=== PATIENT | male | born 1955 | race Caucasian/White ===

== ENCOUNTER 2017-01-07 09:25 | Emergency (ER) | payer MEDICARE ==
[~2017-01-07] VITALS: Ht 165.1 cm; Wt 52.0 kg
[2017-01-07 09:26] VITALS: BP 163/87; PULSE 82; RESP 16; TEMP 98.3; O2SAT 97
--- NOTE | 2017-01-07 09:40 | PD ---
HPI Chief Complaint: Injury Time Seen by Provider: 09:36 Travel History International Travel<30 days: No Contact w/Intl Traveler<30days: No Traveled to known affect area: No History of Present Illness HPI Patient 61-year-old male presents emergency department after bumping his knee 2 days ago. He states his been swelling up and tensing up to the point where he takes some time to have addended. Denies any other injuries. States he just bumped it against the wall accidentally. He states his been able to cannulate though it is quite painful. Has not seen another physician yet. States pain is moderate in intensity. Isolated to the anterior right knee. PFSH Past Medical History Autoimmune Disease: Yes (HIV POSITIVE) Cancer: No Cardiovascular Problems: No Cerebrovascular Accident: Yes (cva ) Diminished Hearing: Yes ([place]) Immune Disorder: Yes (HIV) Tetanus Vaccination: < 5 Years Past Surgical History Abdominal Surgery: Yes (hernia repair) Other Surgery: Yes (LT HERNIA REPAIR 2006) Family History Family Myocardial Infarction: Yes Social History Alcohol Use: Yes Tobacco Use: Yes (1 PPD X 20 YEARS) Substance Use: No Allergies-Medications (Allergen,Severity, Reaction): Coded Allergies: *MDRO Multi-Drug Resistant Organism (Unverified Adverse Reaction, Unknown , MRSA, 01/07/17) MRSA (wrist) - 04/20/07 Reported Meds & Prescriptions Reported Meds & Active Scripts Active No Active Prescriptions or Reported Medications Review of Systems Except as stated in HPI: all other systems reviewed are Neg Physical Exam Narrative GENERAL: Well-nourished, well-developed patient. SKIN: Focused skin assessment warm/dry. HEAD: Normocephalic. EYES: No scleral icterus. No injection or drainage. NECK: Supple, trachea midline. No JVD or lymphadenopathy. CARDIOVASCULAR: Regular rate and rhythm without murmurs, gallops, or rubs. RESPIRATORY: Breath sounds equal bilaterally. No accessory muscle use. GASTROINTESTINAL: Abdomen soft, non-tender, nondistended. MUSCULOSKELETAL: No cyanosis, or edema. Some anterior swelling to the right knee over the patella, no joint effusion appreciated. Full range of motion is exhibited both actively and passively, there is some tenderness with both. Ankle normal, hip normal. Tib-fib normal, femur normal. Left lower extremity is atraumatic, pulses motor and sensory intact distally in all 4 extremities. Compartments are soft. BACK: Nontender without obvious deformity. No CVA tenderness. Data Data Last Documented VS Vital Signs Date Time Temp Pulse Resp B/P Pulse Ox O2 Delivery O2 Flow Rate FiO2 01/07/17 10:54 73 19 121/75 96 01/07/17 09:42 Room Air 01/07/17 09:26 98.3 Orders Knee, Complete (4vws) (01/07/17 ) Ibuprofen (Motrin) (01/07/17 11:00) Matt Bandage (01/07/17 10:05) MDM Medical Decision Making Medical Screen Exam Complete: Yes Emergency Medical Condition: Yes Differential Diagnosis Bursitis seems likely, fracture cannot be excluded bilateral knee rules. Strain , sprain, contusion. Narrative Course Patient roomed in emergency department, he is ambulatory, x-ray of his knee is suggestive of bursitis which confirms a clinical picture. Discussed symptomatic management rest ice compression and elevation. Ibuprofen as needed. Follow-up with primary care physician. Diagnosis Primary Impression: Prepatellar bursitis Qualified Code: M70.41 - Prepatellar bursitis of right knee Scripts No Active Prescriptions or Reported Meds Disposition: 01 DISCHARGE HOME Condition: Stable Wilton Ramirez MD Jan 07, 2017 09:40
--- NOTE | 2017-01-07 10:07 | RADRPT ---
EXAM DATE/TIME: 01/07/2017 09:58 [place] COMPARISON: No previous studies available for comparison. INDICATIONS : Hit his right knee on the bed 1 week ago. MEDICAL HISTORY : None. SURGICAL HISTORY : None. ENCOUNTER: Initial ACUITY: 1 week PAIN SCORE: 10/10 LOCATION: Right knee FINDINGS: Four view examination of the right knee demonstrates no evidence of fracture or dislocation. Bony mi neralization is normal. The articular surfaces are intact. The suprapatellar soft tissues have a no rmal configuration. CONCLUSION: Unremarkable examination of the right knee except marked prepatellar soft tissue thickening possible bursitis. Santo Flores MD on January 07, 2017 at 10:05 Board Certified Radiologist. This report was verified electronically.
[2017-01-07 10:54] VITALS: BP 121/75
[2017-01-07] MEDS ORDERED: IBUPROFEN 600 MG TAB PO ONE (11:00)
== END 2017-01-07 10:56 | disposition home or self-care (01) ==
LOC: NEPD 09:25
DX: M70.41 Prepatellar bursitis, right knee (principal); F17.200 Nicotine dependence, unspecified, uncomplicated; Z21 Asymptomatic human immunodeficiency virus [HIV] infection status; Z86.73 Personal history of transient ischemic attack (TIA), and cerebral infarction without residual deficits
CPT/HCPCS: 73564; 99283

== ENCOUNTER 2018-03-09 10:23 | Observation (INO) ==
[2018-03-09] MEDS ORDERED: Morphine Inj 4 MG/ML Vial IV.PUSH ONE (11:00)
[2018-03-09 11:30] LABS: Baso % (Auto) 0.8 % (0.0-2.0); Eos % (Auto) 0.3 % (0.0-4.0); Hematocrit 37.2 % (39.0-51.0); Hemoglobin 12.4 gm/dL (13.0-17.0); Lymph % (Auto) 24.3 % (9.0-44.0); Mean Corpuscular HGB Conc 33.3 % (32.0-36.0); Mean Corpuscular Hemoglobin 31.7 pg (27.0-34.0); Mean Corpuscular Volume 95.1 fL (80.0-100.0); Mean Platelet Volume 8.7 fL (7.0-11.0); Mono # (Auto) 0.3 th/mm3 (0.0-0.9); Mono % (Auto) 7.3 % (0.0-8.0); Neut # (Auto) 2.8 th/mm3 (1.8-7.7); Neut % (Auto) 67.3 % (16.0-70.0); Platelet Count 131 th/mm3 (150-450); Red Blood Count 3.91 mil/mm3 (4.50-5.90); Red Cell Distribution Width 14.2 % (11.6-17.2); White Blood Count 4.1 th/mm3 (4.0-11.0)
[2018-03-09 11:40] LABS: INR 1.1 Ratio; Prothrombin Time 11.4 sec (9.8-11.6)
[2018-03-09 11:49] LABS: Alanine Aminotransferase 13 U/L (12-78); Albumin 2.6 g/dL (3.4-5.0); Alkaline Phosphatase 76 U/L (45-117); Anion Gap 10 meq/L (5-15); Aspartate Aminotransferase 23 U/L (15-37); Blood Urea Nitrogen 21 mg/dL (7-18); Carbon Dioxide 23.5 meq/L (21.0-32.0); Chloride 98 meq/L (98-107); Glomerular Filtration Rate 60 mL/min (>89); Glucose,Random 83 mg/dL (74-106); Sodium 131 meq/L (136-145); Total Protein 8.4 g/dL (6.4-8.2)
[2018-03-09 12:04] LABS: Creatine Kinase 55 U/L (39-308)
--- NOTE | 2018-03-09 12:15 | XR ---
EXAM DATE: 03/09/2018 11:37 AM EDT AGE/SEX: 62 years / Male INDICATIONS: Chest pains radiating into back, nausea, loss of appetite. CLINICAL DATA: This is the patient's initial encounter. Patient reports that signs and symptoms have been present for 3 days and indicates a pain score of 9/10. MEDICAL/SURGICAL HISTORY: Cardiovascular disease. None. COMPARISON: [facility] [place], CHEST SINGLE AP, 06/16/2016. . FINDINGS: The cardiac silhouette is enlarged in transverse diameter. The aortic knob is prominent with tortuosi ty of the descending thoracic aorta. There is severe emphysematous change in the right upper lobe. T here are chronic fibrotic changes bilaterally. CONCLUSION: Chronic fibrosis and findings of COPD. No acute cardiopulmonary disease. Electronically signed by: Forrest Luis MD 03/09/2018 12:14 PM EDT
--- NOTE | 2018-03-09 13:07 | ED ---
HPI General Chief Complaint: Chest Pain Stated Complaint: chest pain/back pain/legs Time Seen by Provider: 03/09/18 10:59 Source: patient Mode of arrival: ambulatory Limitations: no limitations History of Present Illness HPI narrative: The patient is a 62-year-old male with HIV not on any antiretrovirals for several years for unknown reason presenting with complaint of acute onset of chest pain. For the past few days associated with shortness of breath weakness and nausea. Patient is noncompliant with medications. MD complaint: chest pain STEMI Alert: No Onset (ago): day(s) (3) Duration: constant Onset: during rest Pain location: substernal Severity: severe Quality: aching Pain radiation: none Relieving factors: nothing Exacerbating factors: nothing Associated symptoms: dyspnea Treatments prior to arrival chest pain: none Related Data Home Medications Medication Instructions Recorded Confirmed No Known Home Medications 03/09/18 03/09/18 Allergies Allergy/AdvReac Type Severity Reaction Status Date / Time *MDRO Multi-Drug Resistant AdvReac Unknown MRSA Uncoded 03/09/18 11:21 Organism Review of Systems ROS: all other systems reviewed are negative [facility] Medical History Medical History HIV (human immunodeficiency virus infection) (Acute) Surgical History Surgical History H/O hand surgery (Acute) S/P hernia surgery (Acute) Social History Social History Substance History: Past History Second Hand Smoke Exposure: Yes Smoking Status: Current every day smoker Tobacco Type: Cigarettes How Often Do You Have a Drink Containing Alcohol: 2 to 4 times a month Recent Travel in [facility] within the Last 8 Weeks: No Recent Out of Country Travel within the Last 8 Weeks: No Immunization History Tetanus Immunization: Unsure Hx Influenza Vaccine This Season: No Exam Narrative Exam Narrative: GENERAL: Alert and oriented in no distress cachectic SKIN: Focused skin assessment warm/dry. HEAD: Atraumatic. Normocephalic. Bitemporal wasting EYES: Pupils equal and round. No scleral icterus. No injection or drainage. ENT: No nasal bleeding or discharge. Mucous membranes pink and moist. NECK: Trachea midline. No JVD. CARDIOVASCULAR: Regular rate and rhythm. No murmur appreciated. RESPIRATORY: No accessory muscle use. Clear to auscultation. Breath sounds equal bilaterally. GASTROINTESTINAL: Abdomen soft, non-tender, nondistended. Hepatic and splenic margins not palpable. MUSCULOSKELETAL: No obvious deformities. No clubbing. No cyanosis. No edema. NEUROLOGICAL: Awake and alert. No obvious cranial nerve deficits. Motor grossly within normal limits. Normal speech. PSYCHIATRIC: Appropriate mood and affect; insight and judgment normal. Course Hospital Course: Initial cardiac workup has been unremarkable. Patient is noncompliant with antiretroviral medications. Will admit to chest pain unit Reevaluation(s) Reevaluation #1: Patient comfortably sleeping in no distress no complaint of pain. Time: 13:12 Initial Documented Vital Signs Temperature 99.6 F 03/09/18 10:36 Pulse Rate 88 03/09/18 10:36 Respiratory Rate 13 03/09/18 10:36 Blood Pressure 107/66 03/09/18 10:36 Pulse Oximetry 99 03/09/18 10:36 Last Documented Vital Signs Temperature 98.1 F 03/10/18 08:14 Pulse Rate 67 03/10/18 08:45 Respiratory Rate 16 03/10/18 08:14 Blood Pressure 98/66 L 03/10/18 08:14 Pulse Oximetry 98 03/10/18 08:14 Medical Decision Making MDM Narrative Medical decision making narrative: No leukocytosis. Low platelets at 131. Coags unremarkable. Sodium low at 131 which on the patient's baseline. BUN 21 creatinine 1.23 with a low GFR of 60. Was given a fluid bolus. Troponin EKG not suggestive of acute ischemia. Chest x-ray with findings suggestive of chronic fibrosis and COPD but no acute disease process. Medical Screen Exam Complete: Yes Emergency Medical Condition: Yes Medical Records Medical records reviewed: Yes I reviewed the patient's medical records. Lab Data Lab results reviewed: Yes I reviewed the patient's lab results. Result diagrams: 03/09/18 11:10 03/09/18 11:10 Lab Results 03/09/18 03/09/18 03/09/18 Range/Units 11:10 11:10 11:10 WBC 4.1 (4.0-11.0) th/mm3 RBC 3.91 L (4.50-5.90) mil/mm3 Hgb 12.4 L (13.0-17.0) gm/dL Hct 37.2 L (39.0-51.0) % MCV 95.1 (80.0-100.0) fL MCH 31.7 (27.0-34.0) pg MCHC 33.3 (32.0-36.0) % RDW 14.2 (11.6-17.2) % Plt Count 131 L (150-450) th/mm3 MPV 8.7 (7.0-11.0) fL Neut % (Auto) 67.3 (16.0-70.0) % Lymph % (Auto) 24.3 (9.0-44.0) % [place] % (Auto) 7.3 (0.0-8.0) % Eos % (Auto) 0.3 (0.0-4.0) % Baso % (Auto) 0.8 (0.0-2.0) % Neut # (Auto) 2.8 (1.8-7.7) th/mm3 Lymph # (Auto) 1.0 (1.0-4.8) th/mm3 [place] # (Auto) 0.3 (0.0-0.9) th/mm3 Eos # (Auto) 0.0 (0.0-0.4) th/mm3 Baso # (Auto) 0.0 (0.0-0.2) th/mm3 WBC Differential . Differential Comment Auto diff final PT 11.4 (9.8-11.6) sec INR 1.1 Ratio APTT 27.0 (24.3-30.1) sec Sodium 131 L (136-145) meq/L Potassium 4.0 (3.5-5.1) meq/L Chloride 98 (98-107) meq/L Carbon Dioxide 23.5 (21.0-32.0) meq/L Anion Gap 10 (5-15) meq/L BUN 21 H (7-18) mg/dL Creatinine 1.23 (0.60-1.30) mg/dL Estimated GFR 60 L (>89) mL/min Random Glucose 83 (74-106) mg/dL Calcium 8.0 L (8.5-10.1) mg/dL Total Bilirubin 0.5 (0.2-1.0) mg/dL AST 23 (15-37) U/L ALT 13 (12-78) U/L Alkaline Phosphatase 76 (45-117) U/L Total Creatine Kinase 55 (39-308) U/L Troponin I Less than 0.02 L (0.02-0.05) ng/mL Total Protein 8.4 H (6.4-8.2) g/dL Albumin 2.6 L (3.4-5.0) g/dL Serum Alcohol Less than 3 (0-5) mg/dL 03/09/18 03/09/18 Range/Units 15:20 17:40 WBC (4.0-11.0) th/mm3 RBC (4.50-5.90) mil/mm3 Hgb (13.0-17.0) gm/dL Hct (39.0-51.0) % MCV (80.0-100.0) fL MCH (27.0-34.0) pg MCHC (32.0-36.0) % RDW (11.6-17.2) % Plt Count (150-450) th/mm3 MPV (7.0-11.0) fL Neut % (Auto) (16.0-70.0) % Lymph % (Auto) (9.0-44.0) % [place] % (Auto) (0.0-8.0) % Eos % (Auto) (0.0-4.0) % Baso % (Auto) (0.0-2.0) % Neut # (Auto) (1.8-7.7) th/mm3 Lymph # (Auto) (1.0-4.8) th/mm3 [place] # (Auto) (0.0-0.9) th/mm3 Eos # (Auto) (0.0-0.4) th/mm3 Baso # (Auto) (0.0-0.2) th/mm3 WBC Differential Differential Comment PT (9.8-11.6) sec INR Ratio APTT (24.3-30.1) sec Sodium (136-145) meq/L Potassium (3.5-5.1) meq/L Chloride (98-107) meq/L Carbon Dioxide (21.0-32.0) meq/L Anion Gap (5-15) meq/L BUN (7-18) mg/dL Creatinine (0.60-1.30) mg/dL Estimated GFR (>89) mL/min Random Glucose (74-106) mg/dL Calcium (8.5-10.1) mg/dL Total Bilirubin (0.2-1.0) mg/dL AST (15-37) U/L ALT (12-78) U/L Alkaline Phosphatase (45-117) U/L Total Creatine Kinase 39 43 (39-308) U/L Troponin I Less than 0.02 L Less than 0.02 L (0.02-0.05) ng/mL Total Protein (6.4-8.2) g/dL Albumin (3.4-5.0) g/dL Serum Alcohol (0-5) mg/dL Imaging Data Radiologist's impression: Chest X-Ray 03/09/18 11:00 CONCLUSION: Chronic fibrosis and findings of COPD. No acute cardiopulmonary disease. Myocardial Perfusion Scan Nuc Med 03/10/18 00:00 CONCLUSION: 1. No infarct or area of ischemia is noted ECG Data EKG Prior to Arrival: No Attestation: I personally reviewed and interpreted this ECG as follows: Interpretation: Sinus rhythm 79 bpm right bundle branch block nonspecific ST-T wave abnormalities. No signs of acute ischemia. Discharge Plan Discharge Disposition Patient Disposition: 30 Still Patient Discharge Condition Condition: Stable Discharge Order Discharge Orders: Discharge Order (Routine); Ordered 03/10/18 Ordered By: Vanessa Rodríguez Discharge Details Anticipated Discharge Date: 03/10/18 Diagnosis: Atypical chest pain, HIV (human immunodeficiency virus infection) Physicians Team ED Provider: Salvador Dyer Primary Care Provider: Primary Care Yola Hayden Attending Provider: Laura Quesada ED Status: Left Department Discharge Information Discharge Date/Time: 03/09/18 15:56
[2018-03-09] MEDS ORDERED: Acetaminophen 500 MG Tablet PO PRN (15:31)
--- NOTE | 2018-03-09 15:53 | P.HPCA ---
History of Present Illness Primary Care Physician: No Primary Care Physician Chief Complaint: Chest pain History of Present Illness: This is a 62-year-old male that presents to ED with complaint of 3 days of constant chest and back pain. Patient states that he has a pain across the entire chest is described as piercing and discomfort across his back is described as a heaviness. Nothing has worsened. At home nothing has helped. He was given nitroglycerin IV morphine in the ED and states that the discomfort resolved soon afterwards and has not recurred. States the discomfort is currently resolved. Denies prior history of CAD. Could not initially recall having a prior workup however upon reviewing records he had a nonischemic Lexiscan May 2016 and now he can recall that. Patient also has history of HIV but states he has not taken medications for greater than 10 years. Also has history of multiple sclerosis and states he had never been prescribed medication. States he does not have a local PCP. Patient continues to smoke cigarettes and has history of COPD. Denies recent illness. Denies fevers or chills. Patient continues to smoke about 1 pack of cigarettes daily and has done so for little more than 40 years. Rarely has alcohol. Denies illicit drugs. His father had MIs onset in his 50s. - Diagnosis (1) Chest pain (2) COPD (chronic obstructive pulmonary disease) (3) Tobacco abuse (4) Multiple sclerosis (5) HIV (human immunodeficiency virus infection) Review of Systems General: Patient denies fevers, chills, and recent travel. HEENT: Patient denies headache, sore throat, difficulty swallowing. Cardiovascular: Has the chest discomfort as mentioned above. Denies sensation of heart beating rapidly or irregularly. No syncope. Denies diaphoresis. Respiratory: Denies shortness of breath or inspirational chest discomfort. Denies coughing wheezing or hemoptysis. GI: Patient denies nausea, vomiting, diarrhea, abdominal pain, bloody stools. Musculoskeletal: Patient denies joint pain or edema. Denies calf pain or edema. Neurovascular: Patient denies numbness, tingling, weakness in extremities. Denies headache. Endocrine: Denies polyuria and polydipsia. Hematologic: Denies easy bruising. Skin: Denies rash or itching. PMFSH - History History Provided By: Patient - Medical History Medical History: Medical History (Last Reviewed 03/09/18 @ 13:11 by Salvador Dyer DO) HIV (human immunodeficiency virus infection) - Surgical History Surgical History: Surgical History (Last Reviewed 03/09/18 @ 13:11 by Salvador Dyer DO) H/O hand surgery S/P hernia surgery - Tobacco History Second Hand Smoke Exposure: Yes Tobacco Use In Past 30 Days: Yes Smoking Status: Current every day smoker Tobacco Type: Cigarettes - Alcohol History How Often Do You Have a Drink Containing Alcohol: Monthly or less - Substance Use History Substance History: Past History, Unable to Obtain - Travel History Recent Travel in the [facility] Within the Last 8 Weeks: No Recent Travel Out of the Country Within the Last 8 Weeks: No - Immunization History Tetanus Immunization: Unsure Hx Influenza Vaccine This Season: No Medications and Allergies Active Medications: Active Medications Acetaminophen (Tylenol) 500 mg PO Q6H PRN PRN Reason: pain scale 1-5 Hydrocodone Bitart/Acetaminophen ([place] 7.5/325) 1 tab PO Q6H PRN PRN Reason: pain scale 6-10 Albuterol (Duoneb Neb (Prn)) 1 ampul NEB Q4HR NEB PRN PRN Reason: SHORTNESS OF BREATH/WHEEZING Aspirin (Aspirin) 325 mg PO DAILY [place] Sodium Chloride (Ns Inj) 1,000 mls @ 100 mls/hr IV.CONT .Q10H NAKITA Ondansetron HCl (Zofran Inj) 4 mg IV.PUSH Q6H PRN PRN Reason: NAUSEA OR VOMITING Pantoprazole Sodium (Protonix) 40 mg PO DAILY [place] Sodium Chloride (Ns Flush) 2 ml IV.FLUSH UNSCH PRN PRN Reason: FLUSH AFTER USING IV ACCESS Last Admin: 03/09/18 11:09 Dose: 2 ml Sodium Chloride (Ns Flush) 2 ml IV.FLUSH BID NAK[place] Sodium Chloride (Ns Flush) 2 ml IV.FLUSH PRN PRN PRN Reason: FLUSH AFTER USING IV ACCESS Allergies Allergy/AdvReac Type Severity Reaction Status Date / Time *MDRO Multi-Drug Resistant AdvReac Unknown MRSA Uncoded 03/09/18 11:21 Organism Home Medications Medication Instructions Recorded Confirmed Type No Known Home Medications 03/09/18 03/09/18 History Exam Vital signs: Vital Signs 03/09/18 10:36 03/09/18 10:43 03/09/18 11:21 Temperature 99.6 F Pulse Rate 88 82 Respiratory Rate 13 17 Blood Pressure 107/66 113/75 Pulse Oximetry 99 96 96 03/09/18 11:22 03/09/18 14:00 03/09/18 14:59 Temperature Pulse Rate 81 80 72 Respiratory Rate 19 17 Blood Pressure 90/58 L Pulse Oximetry 96 96 96 Intake & Output 03/08/18 03/09/1818 18:59 06:59 18:59 Weight 49.895 kg Narrative: GENERAL: This is a well-nourished, well-developed patient, in no apparent distress. Patient speaks in clear complete sentences. Patient is pleasant. HEENT: Head is atraumatic and normocephalic. Neck is supple without lymphadenopathy and trachea is midline. No JVD or carotid bruits. CARDIOVASCULAR: Regular rate and rhythm without murmurs, gallops, or rubs. RESPIRATORY: Clear to auscultation. Breath sounds equal bilaterally. No wheezes , rales, or rhonchi. Chest wall is nontender. No use of accessory muscles. GASTROINTESTINAL: Abdomen is nontender, nondistended. Abdomen soft. No obvious pulsatile mass or bruit. No CVA tenderness. Strong femoral pulses bilaterally. Normal bowel sounds in all quadrants. MUSCULOSKELETAL: Patient is moving upper and lower extremities freely. No calf tenderness or edema, no Homans sign. Strong pulses in upper and lower extremities. NEUROLOGICAL: Patient is alert and oriented. Cranial nerves 2-12 are grossly intact. No focal deficits and speech is clear. SKIN: No rash and turgor is normal. Results 03/09/18 11:10 03/09/18 11:10 Cardiac Enzymes 03/09/18 Range/Units 11:10 AST 23 (15-37) U/L Troponin I Less than 0.02 L (0.02-0.05) ng/mL Coagulation 03/09/18 Range/Units 11:10 PT 11.4 (9.8-11.6) sec APTT 27.0 (24.3-30.1) sec CBC 03/09/18 Range/Units 11:10 WBC 4.1 (4.0-11.0) th/mm3 RBC 3.91 L (4.50-5.90) mil/mm3 Hgb 12.4 L (13.0-17.0) gm/dL Hct 37.2 L (39.0-51.0) % Plt Count 131 L (150-450) th/mm3 Neut # (Auto) 2.8 (1.8-7.7) th/mm3 Lymph # (Auto) 1.0 (1.0-4.8) th/mm3 [place] # (Auto) 0.3 (0.0-0.9) th/mm3 Eos # (Auto) 0.0 (0.0-0.4) th/mm3 Baso # (Auto) 0.0 (0.0-0.2) th/mm3 Comprehensive Metabolic Panel 03/09/18 Range/Units 11:10 Sodium 131 L (136-145) meq/L Potassium 4.0 (3.5-5.1) meq/L Chloride 98 (98-107) meq/L Carbon Dioxide 23.5 (21.0-32.0) meq/L BUN 21 H (7-18) mg/dL Creatinine 1.23 (0.60-1.30) mg/dL Calcium 8.0 L (8.5-10.1) mg/dL AST 23 (15-37) U/L ALT 13 (12-78) U/L Alkaline Phosphatase 76 (45-117) U/L Total Protein 8.4 H (6.4-8.2) g/dL Albumin 2.6 L (3.4-5.0) g/dL Intake and Output 03/09/18 03/09/18 03/09/18 06:59 14:59 22:59 Other: Weight 49.895 kg Patient Weight 03/10/18 06:59 Weight 49.895 kg EKG interpretations - EKG EKG shows: sinus rhythm (Initial EKG is sinus rhythm, right bundle branch block , no significant ST segment depressions or elevations.) Caprini VTE Risk Assessment Caprini VTE Risk Assessment: No/Low Risk (score <= 1) Caprini Risk Assessment Model: Point Value = 1 Point Value = 2 Point Value = 3 Point Value = 5 Age 41-60 Minor surgery BMI > 25 kg/m2 Swollen legs Varicose veins or History of unexplained or recurrent spontaneous Oral contraceptives or hormone replacement Sepsis (< 1 month) Serious lung disease, including pneumonia (< 1 month) Abnormal pulmonary function Acute myocardial infarction Congestive heart failure (< 1 month) History of inflammatory bowel disease Medical patient at bed rest Age 61-74 Arthroscopic surgery Major open surgery (> 45 min) Laparoscopic surgery (> 45 min) Malignancy Confined to bed (> 72 hours) Immobilizing plaster cast Central venous access Age >= 75 History of VTE Family history of VTE Factor V Leiden Prothrombin [id number] Lupus anticoagulant Anticardiolipin antibodies Elevated serum homocysteine Heparin-induced thrombocytopenia Other congenital or acquired thrombophilia Stroke (< 1 month) Elective arthroplasty Hip, pelvis, or leg fracture Acute spinal cord injury (< 1 month) Prophylaxis Regimen: Total Risk Factor Score Risk Level Prophylaxis Regimen 0-1 Low Early ambulation 2 Moderate Order ONE of the following: *Sequential Compression Device (SCD) *Heparin 5000 units SQ BID 3-4 Higher Order ONE of the following medications: *Heparin 5000 units SQ TID *Enoxaparin/Lovenox 40 mg SQ daily (WT < 150 kg, CrCl > 30 mL/min) *Enoxaparin/Lovenox 30 mg SQ daily (WT < 150 kg, CrCl > 10-29 mL/min) *Enoxaparin/Lovenox 30 mg SQ BID (WT < 150 kg, CrCl > 30 mL/min) AND/OR *Sequential Compression Device (SCD) 5 or more Highest Order ONE of the following medications: *Heparin 5000 units SQ TID (Preferred with Epidurals) *Enoxaparin/Lovenox 40 mg SQ daily (WT < 150 kg, CrCl > 30 mL/min) *Enoxaparin/Lovenox 30 mg SQ daily (WT < 150 kg, CrCl > 10-29 mL/min) *Enoxaparin/Lovenox 30 mg SQ BID (WT < 150 kg, CrCl > 30 mL/min) AND *Sequential Compression Device (SCD) Assessment and Plan - Assessment (1) Chest pain Code(s): R07.9 - Chest pain, unspecified Status: Acute (2) COPD (chronic obstructive pulmonary disease) Code(s): J44.9 - Chronic obstructive pulmonary disease, unspecified Status: Acute (3) Tobacco abuse Code(s): Z72.0 - Tobacco use Status: Acute (4) Multiple sclerosis Code(s): G35 - Multiple sclerosis Status: Acute (5) HIV (human immunodeficiency virus infection) Code(s): B20 - Human immunodeficiency virus [HIV] disease Status: Acute - Plan * Chest pain: Patient will continue to have serial cardiac enzymes and EKGs for ruling out purposes. He will be seen by Dr. Quesada of cardiology in the chest pain center. He will have a Lexiscan in the morning if he does rule out. Patient will be discharged home if the stress test is nonischemic with instructions to follow-up with PCP. Return to ED for interval issues. * COPD: Have DuoNeb's as needed. Patient counseled on the importance of smoking cessation. * Tobacco abuse: Patient counseled on the importance of smoking cessation. * HIV: Patient needs to establish primary care for treatment of HIV. States he has not been on medication for 10 years. * Multiple sclerosis: Patient states he has never taken medication for this. He should follow-up with physician for reevaluation and treatment. Patient is stable at this time. He is agreeable to this plan.
[2018-03-09 16:24] LABS: Creatine Kinase 39 U/L (39-308)
[2018-03-09] MEDS: Sod Chloride 0.9% Inj 1,000 ML IV.CONT SCH (16:49)
--- NOTE | 2018-03-09 17:56 | ECG ---
Date Performed: 03/09/2018 Time Performed: 10:52:33 PTAGE: 62 years EKG: Sinus rhythm RIGHT BUNDLE BRANCH BLOCK SEPTAL MYOCARDIAL INFARCTION Since the previous tracing, no significant ch margarita noted ABNORMAL ECG PREVIOUS TRACING : 06/16/2016 20.09 DOCTOR: Laura Quesada Interpretating Date/Time 03/09/2018 17:53:17
[2018-03-09 18:44] LABS: Creatine Kinase 43 U/L (39-308)
[2018-03-10] MEDS: Sod Chloride 0.9% Inj 1,000 ML IV.CONT SCH ×2 (00:35→11:52)
[2018-03-10 08:15] VITALS: BP 98/66; RESP 16; TEMP 98.1; O2SAT 98
--- NOTE | 2018-03-10 08:25 | P.PNCA ---
Subjective Interval history: No further chest pain. No complaints overnight. Physical Exam Vital signs: Vital Signs 03/09/18 10:36 03/09/18 10:43 03/09/18 11:21 Temperature 99.6 F Pulse Rate 88 82 Respiratory Rate 13 17 Blood Pressure 107/66 113/75 Pulse Oximetry 99 96 96 03/09/18 11:22 03/09/18 14:00 03/09/18 14:59 Temperature Pulse Rate 81 80 72 Respiratory Rate 19 17 Blood Pressure 90/58 L Pulse Oximetry 96 96 96 03/09/18 16:00 03/09/18 19:49 03/09/18 20:00 Temperature 99.0 F 98.3 F Pulse Rate 71 86 82 Respiratory Rate 20 20 Blood Pressure 113/71 120/76 Pulse Oximetry 98 100 03/09/18 23:46 03/10/18 04:00 03/10/18 08:14 Temperature 100.0 F H 100.1 F H 98.1 F Pulse Rate 95 H 86 70 Respiratory Rate 18 20 16 Blood Pressure 101/63 106/74 98/66 L Pulse Oximetry 100 96 98 Intake & Output 03/09/18 03/10/18 03/10/18 18:59 06:59 18:59 Intake Total 1000 / 1000 Balance 1000 / 1000 Weight 49.895 kg Intake: IV 1000 / 1000 NS Inj 1,000 ML @ 100 mls/hr IV 1000 / 1000 .CONT .Q10H [facility] Rx#:[id number] Other: Weight On Admission 49.895 kg - Constitutional no acute distress, thin, chronically ill appearing, cooperative Comments: male who appears older than stated age, easily awakens from sleep. Extremely hard of hearing. - Routine HEENT Exam Head: Present: normocephalic, atraumatic - Routine Neck Exam Present: supple - Routine Respiratory Exam Present: decreased breath sounds. Absent: accessory muscle use, rhonchi, wheezes - Routine Cardiovascular Exam Present: RRR. Absent: murmur, gallop, rubs - Routine Abdominal Exam Present: soft, normoactive bowel sounds. Absent: tenderness Assessment and Plan - Assessment (1) Chest pain Code(s): R07.9 - Chest pain, unspecified Status: Acute Plan: Admitted to chest pain center. Monitored on telemetry overnight. ACS ruled out with 3 sets of EKGs and cardiac enzymes. Previously seen and evaluated by Dr. Laura Quesada last evening. Proceed with planned Lexiscan this a.m. If unremarkable, plans to discharge home with follow-up with PCP. (2) COPD (chronic obstructive pulmonary disease) Code(s): J44.9 - Chronic obstructive pulmonary disease, unspecified Status: Acute Plan: Smoking cessation reinforced. (3) Tobacco abuse Code(s): Z72.0 - Tobacco use Status: Chronic Plan: Strongly encouraged stress importance of tobacco cessation. Instructed to quit smoking. (4) Multiple sclerosis Code(s): G35 - Multiple sclerosis Status: Chronic Plan: Establish with a primary care provider. Information will be provided on low cost or free clinics in the area upon discharge. (5) HIV (human immunodeficiency virus infection) Code(s): B20 - Human immunodeficiency virus [HIV] disease Status: Chronic Plan: Strongly encouraged follow up with local health department. Encouraged antiviral treatment to prevent life threatening complication from HIV. - Plan * Chest pain: Patient will continue to have serial cardiac enzymes and EKGs for ruling out purposes. He will be seen by Dr. Quesada of cardiology in the chest pain center. He will have a Lexiscan in the morning if he does rule out. Patient will be discharged home if the stress test is nonischemic with instructions to follow-up with PCP. Return to ED for interval issues. * COPD: Have DuoNeb's as needed. Patient counseled on the importance of smoking cessation. * Tobacco abuse: Patient counseled on the importance of smoking cessation. * HIV: Patient needs to establish primary care for treatment of HIV. States he has not been on medication for 10 years. * Multiple sclerosis: Patient states he has never taken medication for this. He should follow-up with physician for reevaluation and treatment. Patient is stable at this time. He is agreeable to this plan. (1) Chest pain Qualifiers: Chest pain type: unspecified Qualified Code(s): R07.9 - Chest pain, unspecified (2) COPD (chronic obstructive pulmonary disease) Qualifiers: Emphysema type: unspecified
[2018-03-10] MEDS ORDERED: Aspirin 325 MG Tablet PO SCH (09:00)
[2018-03-10 09:19] VITALS: PULSE 67
[2018-03-10] MEDS ORDERED: Regadenoson Inj 0.4 MG/5 ML Syringe IV.PUSH ONE (10:14)
--- NOTE | 2018-03-10 11:52 | NM ---
EXAM DATE: 03/10/2018 11:43 AM EDT AGE/SEX: 62 years / Male INDICATIONS:Angina. . Chest pain. CLINICAL DATA: This is the patient's initial encounter. Patient reports that signs and symptoms have been present for 3 days and indicates a pain score of 1/10. MEDICAL/SURGICAL HISTORY: Chronic obstructive pulmonary disease. Inguinal hernia repair. COMPARISON: [facility] [place], MYOCARDIAL PERF PHARM SPECT, 06/17/2016. . DOSE: 8.6 mCi Tc 99m Myoview at rest 25.7 mCi [id number] at stress 0.4 mg Lexiscan STRESS SYMPTOMS: Shortness of breath. EJECTION FRACTION: 60 % TECHNIQUE: The patient underwent pharmacologic stress with infusion of prescribed dose. Continuous ECG tracing was monitored during stress. Gated SPECT imaging was performed after stress and conventi onal SPECT imaging was performed at rest. The examination was performed on a SPECT/CT scanner, both attenuation and non-corrected datasets were reviewed. FINDINGS: Distribution: The maximum perfused segment at stress is in the anteroseptal wall. Perfusion Study: The pattern of perfusion at stress is within normal limits. Gated Study: There are intact wall motion and wall thickening without hypokinetic or dyskinetic segm ents. The ejection fraction is calculated at 60%. RISK CATEGORY: Low (<1% Annual Motality Rate) CONCLUSION: 1. No infarct or area of ischemia is noted Electronically signed by: Santo Flores MD 03/10/2018 11:51 AM EDT
--- NOTE | 2018-03-10 14:21 | ECG ---
Date Performed: 03/09/2018 Time Performed: 15:31:21 PTAGE: 62 years EKG: Sinus rhythm RIGHT BUNDLE BRANCH BLOCK ABNORMAL ECG PREVIOUS TRACING : 03/09/2018 10.52 Since previous tracing, no significant change noted DOCTOR: Forrest Hendricks Interpretating Date/Time 03/10/2018 14:19:59
--- NOTE | 2018-03-10 15:21 | TR ---
Date Performed: 03/10/2018 Time Performed: 10:15:34 DOCTOR: Forrest Hendricks DRUG LIST: CLINICAL HISTORY: REASON FOR TEST: REASON FOR ENDING: OBSERVATION: CONCLUSION: COMMENTS: Lexiscan stress test was performed under standard four minute protocol. Radionuclide was injected one minute prior to ending the test. No electrocardiographic abormalities were present t o suggest ischemia. Nuclear imaging and interpretation are pending.
== END 2018-03-10 12:35 | disposition home or self-care (01) ==
LOC: NEPC 10:23 → NEDA 10:23 → NEPFCDU 15:49
PROVIDERS: ADMIT Internal Medicine Interventional Cardiology; ATTEND Internal Medicine Interventional Cardiology

== ENCOUNTER 2018-03-25 15:56 | Observation (INO) ==
[2018-03-25] MEDS ORDERED: Sod Chloride 0.9% Inj 1,000 ML IV.SIG ONE (17:17)
[2018-03-25] MEDS ORDERED: Nystatin Liq 500,000 UNIT/5 ML UDC SWISH-SWAL ONE (17:17)
--- NOTE | 2018-03-25 17:23 | ED ---
HPI General Chief complaint: Fall Stated complaint: Fall Time Seen by Provider: 03/25/18 17:10 History of Present Illness HPI narrative: This is a 62-year-old male with history of HIV not on any antiretroviral therapy, multiple sclerosis, presents via EMS for evaluation. Reportedly the patient was consuming alcohol at a bar when he fell. The patient reports that he was sitting at the bar drinking when he felt lightheaded and then passed out. He reports that for the past several weeks he has had generalized fatigue. He is currently complaining of a frontal headache from where he hit his head on the ground. Symptoms are moderate, no obvious aggravating or relieving factors. The patient is a poor historian secondary to intoxication. Per chart review the patient was seen here on March 09 for evaluation of chest pain. He was admitted to the chest pain center where he had a Uneventful workup. Related Data Home Medications Medication Instructions Recorded Confirmed No Known Home Medications 03/09/18 03/25/18 Allergies Allergy/AdvReac Type Severity Reaction Status Date / Time *MDRO Multi-Drug Resistant AdvReac Unknown MRSA Uncoded 03/09/18 11:21 Organism Review of Systems ROS: all other systems reviewed are negative [facility] Social History Social History Substance History: No History of Abuse Second Hand Smoke Exposure: No Smoking Status: Never smoker Tobacco Type: Cigarettes How Often Do You Have a Drink Containing Alcohol: 2 to 3 times a week Recent Travel in [facility] within the Last 8 Weeks: No Recent Out of Country Travel within the Last 8 Weeks: No Immunization History Tetanus Immunization: Unable to Assess Hx Influenza Vaccine This Season: Unable to Assess Exam Narrative Exam Narrative: GENERAL: thin appearing male who is sleeping but arousable. Smells of alcohol. SKIN: Warm and dry. Early developing forehead hematoma noted. HEAD: Skin as noted above. Normocephalic. EYES: Pupils equal and round. No scleral icterus. No injection or drainage. ENT: No nasal bleeding or discharge. Mucous membranes pink and moist. Thrush noted on the buccal mucosa of the cheeks bilaterally. NECK: Trachea midline. No JVD. CARDIOVASCULAR: Regular rate and rhythm. No murmur appreciated. RESPIRATORY: No accessory muscle use. Clear to auscultation. Breath sounds equal bilaterally. GASTROINTESTINAL: Abdomen soft, non-tender, nondistended. Hepatic and splenic margins not palpable. MUSCULOSKELETAL: No obvious deformities. No clubbing. No cyanosis. No edema. NEUROLOGICAL: Awake and alert. No obvious cranial nerve deficits. Motor grossly within normal limits. Slurred speech. Course Initial Documented Vital Signs Temperature 98.3 F 03/25/18 16:03 Pulse Rate 86 03/25/18 16:03 Respiratory Rate 20 03/25/18 16:03 Blood Pressure 114/76 03/25/18 16:03 Pulse Oximetry 95 03/25/18 16:03 Last Documented Vital Signs Temperature 98.3 F 03/25/18 16:03 Pulse Rate 67 03/25/18 19:21 Respiratory Rate 16 03/25/18 19:21 Blood Pressure 114/76 03/25/18 16:03 Pulse Oximetry 100 03/25/18 19:21 Medical Decision Making JAY Attestation JAY supervised visit: Yes Attestation: I, Dr. Paz, have reviewed the advance practice practitioner's documentation and am in agreement, met with the patient face to face, made the diagnosis, and the medical decision making was done by me. *My assessment and Findings: Patient is a 62-year-old male who presents with complaint of generalized weakness. He is acutely intoxicated on arrival. Exam reveals a cachectic, chronically ill-appearing male with easily visible thrush for which she has been given nystatin. CT unremarkable. EKG shows normal sinus rhythm with a RBBB present on previous EKG. No ST or T wave changes. Labs reveal ethanol intoxication in addition to acute on chronic hyponatremia. He has been given 2 L normal saline bolus. Given his multiple comorbidities and acute on chronic hyponatremia possibly causing his generalized weakness he has been admitted to the hospitalist, Dr. Roth, for further evaluation and management. [facility] Narrative Medical decision making narrative: The patient was placed on ECG monitoring and pulse oximetry. A 12-lead EKG was ordered. Lab work, urinalysis, nystatin ordered for thrush. The patient was given IV fluids. Lab work is been reviewed. Sodium is 126 and alcohol level is 200 otherwise lab work is unremarkable. At the end of my shift the patient was signed out pending CT imaging and EKG. Medical Screen Exam Complete: Yes Emergency Medical Condition: Yes Differential Diagnosis Differential Diagnosis: Alcohol intoxication, electrolyte abnormality, dehydration, hypoglycemia, seizure, syncope, MS exacerbation Lab Data Result diagrams: 03/25/18 18:04 03/25/18 18:04 Lab Results 03/25/18 03/25/18 03/25/18 Range/Units 18:04 18:04 18:04 WBC 4.6 (4.0-11.0) th/mm3 RBC 3.64 L (4.50-5.90) mil/mm3 Hgb 11.5 L (13.0-17.0) gm/dL Hct 33.6 L (39.0-51.0) % MCV 92.4 (80.0-100.0) fL MCH 31.5 (27.0-34.0) pg MCHC 34.1 (32.0-36.0) % RDW 13.9 (11.6-17.2) % Plt Count 135 L (150-450) th/mm3 MPV 8.4 (7.0-11.0) fL Prelim Diff (Auto) Slide review pending Neut % (Auto) 38.0 (16.0-70.0) % Lymph % (Auto) 53.6 H (9.0-44.0) % [place] % (Auto) 6.7 (0.0-8.0) % Eos % (Auto) 0.9 (0.0-4.0) % Baso % (Auto) 0.8 (0.0-2.0) % Neut # (Auto) 1.7 L (1.8-7.7) th/mm3 Lymph # (Auto) 2.5 (1.0-4.8) th/mm3 [place] # (Auto) 0.3 (0.0-0.9) th/mm3 Eos # (Auto) 0.0 (0.0-0.4) th/mm3 Baso # (Auto) 0.0 (0.0-0.2) th/mm3 WBC Differential . Diff Scan Auto diff confirmed Differential Comment . Platelet Estimate Low L (Normal) Platelet Morphology Enlarged H (Normal) RBC Morphology Normal (Normal) Sodium 126 L (136-145) meq/L Potassium 4.4 (3.5-5.1) meq/L Chloride 96 L (98-107) meq/L Carbon Dioxide 21.2 (21.0-32.0) meq/L Anion Gap 9 (5-15) meq/L BUN 17 (7-18) mg/dL Creatinine 0.99 (0.60-1.30) mg/dL Estimated GFR 77 L (>89) mL/min Random Glucose 69 L (74-106) mg/dL Calcium 7.7 L (8.5-10.1) mg/dL Magnesium (1.5-2.5) mg/dL Total Creatine Kinase (39-308) U/L CK-MB (CK-2) (0.5-3.6) ng/mL Troponin I (0.02-0.05) ng/mL TSH 1.540 (0.358-3.740) uIU/mL Serum Alcohol 202 H (0-5) mg/dL 03/25/18 Range/Units 18:04 WBC (4.0-11.0) th/mm3 RBC (4.50-5.90) mil/mm3 Hgb (13.0-17.0) gm/dL Hct (39.0-51.0) % MCV (80.0-100.0) fL MCH (27.0-34.0) pg MCHC (32.0-36.0) % RDW (11.6-17.2) % Plt Count (150-450) th/mm3 MPV (7.0-11.0) fL Prelim Diff (Auto) Neut % (Auto) (16.0-70.0) % Lymph % (Auto) (9.0-44.0) % [place] % (Auto) (0.0-8.0) % Eos % (Auto) (0.0-4.0) % Baso % (Auto) (0.0-2.0) % Neut # (Auto) (1.8-7.7) th/mm3 Lymph # (Auto) (1.0-4.8) th/mm3 [place] # (Auto) (0.0-0.9) th/mm3 Eos # (Auto) (0.0-0.4) th/mm3 Baso # (Auto) (0.0-0.2) th/mm3 WBC Differential Diff Scan Differential Comment Platelet Estimate (Normal) Platelet Morphology (Normal) RBC Morphology (Normal) Sodium (136-145) meq/L Potassium (3.5-5.1) meq/L Chloride (98-107) meq/L Carbon Dioxide (21.0-32.0) meq/L Anion Gap (5-15) meq/L BUN (7-18) mg/dL Creatinine (0.60-1.30) mg/dL Estimated GFR (>89) mL/min Random Glucose (74-106) mg/dL Calcium (8.5-10.1) mg/dL Magnesium 2.0 (1.5-2.5) mg/dL Total Creatine Kinase 182 (39-308) U/L CK-MB (CK-2) 2.2 (0.5-3.6) ng/mL Troponin I Less than 0.02 L (0.02-0.05) ng/mL TSH (0.358-3.740) uIU/mL Serum Alcohol (0-5) mg/dL Imaging Data Radiologist's impression: Head CT 03/25/18 17:17 CONCLUSION: 1. No bleed or other acute intracranial abnormality. 2. Chronic maxillary sinus disease, not significantly changed on the right, improved on the left. . Discharge Plan Discharge Disposition Patient Disposition: 30 Still Patient Discharge Condition Condition: Stable Discharge Details Diagnosis: Acute hyponatremia, Multiple sclerosis, HIV (human immunodeficiency virus infection), Alcohol intoxication Physicians Team ED Provider: Dara Paz ED Midlevel Provider: Luis Eduardo Javier Primary Care Provider: UNKNOWN, Rxs /Orders / Referrals /Forms Prescriptions: No Action No Known Home Medications RF: 0 Referrals: Krishna Mittal M.D. [INTERNAL MEDICINE] - 3 Days Discharge Interventions Interventions: Vital Signs Last Done: 03/25/18 19:21 Status ED Status: With Doctor
[2018-03-25 18:29] LABS: Baso % (Auto) 0.8 % (0.0-2.0); Eos % (Auto) 0.9 % (0.0-4.0); Hematocrit 33.6 % (39.0-51.0); Hemoglobin 11.5 gm/dL (13.0-17.0); Lymph # (Auto) 2.5 th/mm3 (1.0-4.8); Lymph % (Auto) 53.6 % (9.0-44.0); Mean Corpuscular HGB Conc 34.1 % (32.0-36.0); Mean Corpuscular Hemoglobin 31.5 pg (27.0-34.0); Mean Corpuscular Volume 92.4 fL (80.0-100.0); Mean Platelet Volume 8.4 fL (7.0-11.0); Mono # (Auto) 0.3 th/mm3 (0.0-0.9); Mono % (Auto) 6.7 % (0.0-8.0); Neut # (Auto) 1.7 th/mm3 (1.8-7.7); Platelet Count 135 th/mm3 (150-450); Red Blood Count 3.64 mil/mm3 (4.50-5.90); Red Cell Distribution Width 13.9 % (11.6-17.2); White Blood Count 4.6 th/mm3 (4.0-11.0)
[2018-03-25 18:42] LABS: Calcium 7.7 mg/dL (8.5-10.1); Carbon Dioxide 21.2 meq/L (21.0-32.0)
[2018-03-25 18:43] LABS: Potassium 4.4 meq/L (3.5-5.1)
[2018-03-25 18:46] LABS: Creatine Kinase 182 U/L (39-308)
[2018-03-25 18:48] LABS: Thyroid Stimulating Hormone 1.54 uIU/mL (0.358-3.740)
[2018-03-25 18:59] LABS: Creatine Kinase MB 2.2 ng/mL (0.5-3.6)
[2018-03-25] MEDS ORDERED: Sod Chloride 0.9% Inj 1,000 ML IV.SIG SCH (19:00)
[2018-03-25 19:08] LABS: RBC Morphology Normal (Normal)
--- NOTE | 2018-03-25 19:17 | CT ---
EXAM DATE: 03/25/2018 6:47 PM EDT AGE/SEX: 62 years / Male INDICATIONS: Trauma. Fall. CLINICAL DATA: This is the patient's initial encounter. Patient reports that signs and symptoms have been present for 1 day and indicates a pain score of 0/10. MEDICAL/SURGICAL HISTORY: Chronic obstructive pulmonary disease. HIV. Multiple sclerosis. None. RADIATION DOSE: 45.15 CTDI (mGy) COMPARISON: [facility] [place], [place] BRAIN W/O CONTRAST, 01/24/2013. . TECHNIQUE: CT of the head without contrast. Using automated exposure control and adjustment of the mA and/or kV according to patient size, radiation dose was kept as low as reasonably achievable to ob tain optimal diagnostic quality images. DICOM format image data is available electronically for revi ew and comparison. FINDINGS: Cerebrum: The ventricles are normal for age. No evidence of midline shift, mass lesion, hemorrhage or acute infarction. No extraaxial fluid collections are seen. Posterior Fossa: The cerebellum and brainstem are intact. The 4th ventricle is midline. The cerebe llopontine angle is unremarkable. Extracranial: Large mucous retention cyst again seen of the right maxillary air cell. There is mild mucoperiosteal thickening of the left maxillary sinus, substantially improved since 2012. Skull: The calvaria is intact. No evidence of skull fracture. CONCLUSION: 1. No bleed or other acute intracranial abnormality. 2. Chronic maxillary sinus disease, not significantly changed on the right, improved on the left. . Electronically signed by: Obinna Gaona MD 03/25/2018 7:16 PM EDT
[2018-03-25] MEDS ORDERED: Haloperidol Inj 5 MG/ML Ampul IV.PUSH PRN (20:56)
[2018-03-25] MEDS ORDERED: LORazepam 1 MG Tablet PO PRN (20:56)
[2018-03-25] MEDS ORDERED: Bisacodyl 10 MG Supp RECTAL PRN (20:57)
--- NOTE | 2018-03-25 21:06 | P.HP ---
History of Present Illness Service: [facility] Primary Care Physician: UNKNOWN History of Present Illness: 62-year-old male with a past medical history significant for HIV (last CD4 count 249 in 2013), not on antiretroviral medications by choice, presents to the emergency department after suffering a fall from a barstool fall drinking at a bar. The patient currently complains of lightheadedness. He denies any pain anywhere. He was brought to the emergency department by EMS because the employees at the bar felt the patient was "too slow in standing up." The patient denies any head trauma. No loss of consciousness. No chest pain or shortness of breath. No abdominal pain. No nausea/vomiting/diarrhea. No lateralizing signs/symptoms. He does complain of white plaques on his tongue. Review of Systems All other systems reviewed negative except as stated in HPI PMFSH - History History Provided By: Patient - Medical History Medical History: Medical History (Last Reviewed 03/25/18 @ 21:02 by Haleigh Roth MD) HIV (human immunodeficiency virus infection) - Surgical History Surgical History: Surgical History (Last Reviewed 03/25/18 @ 21:02 by Haleigh Roth MD) H/O hand surgery S/P hernia surgery - Family History Family History: Family History (Last Updated 03/25/18 @ 21:02 by Haleigh Roth MD) Other Family history unknown - Tobacco History Second Hand Smoke Exposure: No Smoking Status: Never smoker Tobacco Type: Cigarettes - Alcohol History How Often Do You Have a Drink Containing Alcohol: 2 to 3 times a week - Substance Use History Substance History: No History of Abuse - Travel History Recent Travel in the [place] Within the Last 8 Weeks: No Recent Travel Out of the Country Within the Last 8 Weeks: No - Immunization History Tetanus Immunization: Unable to Assess Hx Influenza Vaccine This Season: Unable to Assess Medications and Allergies Active Medications: Active Medications Bisacodyl (Dulcolax Supp) 10 mg RECTAL DAILY PRN PRN Reason: SEVERE CONSITIPATION Flumazenil (Romazecon Inj) 0.2 mg IV.PUSH Q1M PRN PRN Reason: OVERSEDATION Folic Acid (Folic Acid) 1 mg PO DAILY NAKITA Stop: 03/31/18 08:59 Haloperidol Lactate (Haldol Inj) 1 mg IV.PUSH Q15M PRN PRN Reason: for severe agitation Sodium Chloride (Ns Inj) 1,000 mls @ 0 mls/hr IV.SIG BOLUS NAKITA Sodium Chloride (Ns Flush) 2 ml IV.FLUSH PRN PRN PRN Reason: FLUSH AFTER USING IV ACCESS Allergies Allergy/AdvReac Type Severity Reaction Status Date / Time *MDRO Multi-Drug Resistant AdvReac Unknown MRSA Uncoded 03/09/18 11:21 Organism Home Medications Medication Instructions Recorded Confirmed Type No Known Home Medications 03/09/18 03/25/18 History Exam Vital signs: Vital Signs 03/25/18 16:03 03/25/18 19:21 03/25/18 20:48 Temperature 98.3 F Pulse Rate 86 67 67 Respiratory Rate 20 16 16 Blood Pressure 114/76 90/58 L Pulse Oximetry 95 100 97 Intake & Output 03/25/18 03/25/18 03/26/18 06:59 18:59 06:59 Intake Total 1000 / 1000 Balance 1000 / 1000 Intake: IV 1000 / 1000 NS Inj 1,000 ML @ Wide Open IV. 1000 / 1000 SIG BOLUS ONE Rx#:[id number] Narrative: Gen.: No acute distress Head: Normocephalic. Atraumatic. EENT: Pupils equal round and reactive to light. Nose without drainage. Airway intact. Throat without injection. White plaques present on the tongue consistent with oral thrush. Cardiovascular: Regular rate and rhythm. No murmurs, rubs or gallops. Respiratory: Lungs clear to auscultation bilaterally. No wheezes or rhonchi. Abdomen: Soft, nontender, nondistended. No peritoneal signs. Musculoskeletal: No gross deformities. No edema. Skin: No obvious rashes or erythema. Neuro: Sensory and motor grossly intact. Cranial nerves II through XII grossly intact. Results - Labs CBC & Chem 7: 03/25/18 18:04 03/25/18 18:04 Labs: Laboratory Results - last 24 hr 03/25/18 03/25/18 03/25/18 18:04 18:04 18:04 WBC 4.6 RBC 3.64 L Hgb 11.5 L Hct 33.6 L MCV 92.4 MCH 31.5 MCHC 34.1 RDW 13.9 Plt Count 135 L MPV 8.4 Prelim Diff (Auto) Slide review pending Neut % (Auto) 38.0 Lymph % (Auto) 53.6 H [place] % (Auto) 6.7 Eos % (Auto) 0.9 Baso % (Auto) 0.8 Neut # (Auto) 1.7 L Lymph # (Auto) 2.5 [place] # (Auto) 0.3 Eos # (Auto) 0.0 Baso # (Auto) 0.0 WBC Differential . Diff Scan Auto diff confirmed Differential Comment . Platelet Estimate Low L Platelet Morphology Enlarged H RBC Morphology Normal Sodium 126 L Potassium 4.4 Chloride 96 L Carbon Dioxide 21.2 Anion Gap 9 BUN 17 Creatinine 0.99 Estimated GFR 77 L Random Glucose 69 L Calcium 7.7 L Magnesium Total Creatine Kinase CK-MB (CK-2) Troponin I TSH 1.540 Serum Alcohol 202 H 03/25/18 18:04 WBC RBC Hgb Hct MCV MCH MCHC RDW Plt Count MPV Prelim Diff (Auto) Neut % (Auto) Lymph % (Auto) [place] % (Auto) Eos % (Auto) Baso % (Auto) Neut # (Auto) Lymph # (Auto) [place] # (Auto) Eos # (Auto) Baso # (Auto) WBC Differential Diff Scan Differential Comment Platelet Estimate Platelet Morphology RBC Morphology Sodium Potassium Chloride Carbon Dioxide Anion Gap BUN Creatinine Estimated GFR Random Glucose Calcium Magnesium 2.0 Total Creatine Kinase 182 CK-MB (CK-2) 2.2 Troponin I Less than 0.02 L TSH Serum Alcohol - Imaging Impressions Head CT 03/25/18 17:17 CONCLUSION: 1. No bleed or other acute intracranial abnormality. 2. Chronic maxillary sinus disease, not significantly changed on the right, improved on the left. . Caprini VTE Risk Assessment Caprini VTE Risk Assessment: Moderate/High Risk (score >= 2) Caprini Risk Assessment Model: Point Value = 1 Point Value = 2 Point Value = 3 Point Value = 5 Age 41-60 Minor surgery BMI > 25 kg/m2 Swollen legs Varicose veins or History of unexplained or recurrent spontaneous Oral contraceptives or hormone replacement Sepsis (< 1 month) Serious lung disease, including pneumonia (< 1 month) Abnormal pulmonary function Acute myocardial infarction Congestive heart failure (< 1 month) History of inflammatory bowel disease Medical patient at bed rest Age 61-74 Arthroscopic surgery Major open surgery (> 45 min) Laparoscopic surgery (> 45 min) Malignancy Confined to bed (> 72 hours) Immobilizing plaster cast Central venous access Age >= 75 History of VTE Family history of VTE Factor V Leiden Prothrombin [id number] Lupus anticoagulant Anticardiolipin antibodies Elevated serum homocysteine Heparin-induced thrombocytopenia Other congenital or acquired thrombophilia Stroke (< 1 month) Elective arthroplasty Hip, pelvis, or leg fracture Acute spinal cord injury (< 1 month) Prophylaxis Regimen: Total Risk Factor Score Risk Level Prophylaxis Regimen 0-1 Low Early ambulation 2 Moderate Order ONE of the following: *Sequential Compression Device (SCD) *Heparin 5000 units SQ BID 3-4 Higher Order ONE of the following medications: *Heparin 5000 units SQ TID *Enoxaparin/Lovenox 40 mg SQ daily (WT < 150 kg, CrCl > 30 mL/min) *Enoxaparin/Lovenox 30 mg SQ daily (WT < 150 kg, CrCl > 10-29 mL/min) *Enoxaparin/Lovenox 30 mg SQ BID (WT < 150 kg, CrCl > 30 mL/min) AND/OR *Sequential Compression Device (SCD) 5 or more Highest Order ONE of the following medications: *Heparin 5000 units SQ TID (Preferred with Epidurals) *Enoxaparin/Lovenox 40 mg SQ daily (WT < 150 kg, CrCl > 30 mL/min) *Enoxaparin/Lovenox 30 mg SQ daily (WT < 150 kg, CrCl > 10-29 mL/min) *Enoxaparin/Lovenox 30 mg SQ BID (WT < 150 kg, CrCl > 30 mL/min) AND *Sequential Compression Device (SCD) Assessment and Plan - Plan Assessment/plan: 1. Fall/alcohol intoxication Patient denies any trauma or pain secondary to his fall Alcohol level 202 Reports lightheadedness suspect this is secondary to hyponatremia and/or acute alcohol intoxication [facility] protocol 2. Hyponatremia Sodium 126 Status post normal saline in the ED Fluid restriction BMP in the a.m. 3. Oral thrush Nystatin swishswallow 4. HIV Patient is not on any antiretroviral medications and does not follow with infectious disease FEN Regular diet with 800 mL fluid restriction Electrolytes: As above Heparin
[2018-03-25] MEDS: Senna/Docusate Sodium 8.6/50 MG Tablet PO SCH (22:28)
[2018-03-25] MEDS: Nystatin Liq 500,000 UNIT/5 ML UDC SWISH-SWAL SCH (22:28)
[2018-03-25] MEDS: Heparin - SQ 10,000 UNITS/ML Vial SQ SCH (22:28)
[2018-03-26 04:03] VITALS: O2SAT 94
[2018-03-26 08:17] VITALS: BP 128/85; PULSE 79; RESP 22; TEMP 98.2
[2018-03-26] MEDS ORDERED: Multivitamin/Minerals Therapeutic Tablet PO SCH (09:00)
[2018-03-26] MEDS ORDERED: Folic Acid 1 MG Tablet PO SCH (09:00)
[2018-03-26 09:25] LABS: Anion Gap 10 meq/L (5-15); Blood Urea Nitrogen 12 mg/dL (7-18); Calcium 7.2 mg/dL (8.5-10.1); Chloride 109 meq/L (98-107); Glomerular Filtration Rate Greater Than 89 mL/min (>89); Glucose,Random 62 mg/dL (74-106); Potassium 3.8 meq/L (3.5-5.1)
[2018-03-26 09:26] LABS: Sodium 139 meq/L (136-145)
[2018-03-26] MEDS: Senna/Docusate Sodium 8.6/50 MG Tablet PO SCH (09:37)
[2018-03-26] MEDS: Heparin - SQ 10,000 UNITS/ML Vial SQ SCH (09:38)
[2018-03-26] MEDS: Nystatin Liq 500,000 UNIT/5 ML UDC SWISH-SWAL SCH (09:38)
[2018-03-26 09:48] LABS: Total Protein 6.8 g/dL (6.4-8.2)
--- NOTE | 2018-03-26 09:53 | P.PN ---
Subjective Interval history: Follow-up for alcohol intoxication, fall while at the bar, lightheadedness, hyponatremia. Patient is seen sitting upright in bed eating breakfast. RN at bedside. The patient states he feels fine. He denies any lightheadedness or dizziness. He has been ambulating the unit without difficulty. He admits to being intoxicated last night, correlates with alcohol level over 200 upon arrival. He denies ever losing consciousness, states he does remembers feeling weak. Discussed his HIV diagnosis, patient states he has not been on any antiretrovirals in at least 7-10 years, however he is interested on restarting medications. He states he is very familiar with the [facility] and will plan to follow-up there. He states he stopped the medications because he was taking over 10 pills daily, however he recently heard that he could take maybe 1 pill a day which he is more comfortable with. He also complains of bilateral eyes with purulent drainage, worse in the mornings, with matted eyelashes, requesting eyedrops. He also complains of few sores in his mouth and he believes the nystatin SS has helped him overnight. He otherwise denies any other medical complaints including no cough, chest pain , shortness of breath, or abdominal complaints. He wants to go home. Physical Exam Vital signs: Vital Signs 03/25/18 16:03 03/25/18 19:21 03/25/18 20:48 Temperature 98.3 F Pulse Rate 86 67 67 Respiratory Rate 20 16 16 Blood Pressure 114/76 90/58 L Pulse Oximetry 95 100 97 03/25/18 22:39 03/26/18 00:00 03/26/18 04:00 Temperature 97.8 F 98.3 F Pulse Rate 63 74 Respiratory Rate 16 16 16 Blood Pressure 103/63 114/68 Pulse Oximetry 96 94 L 03/26/18 08:00 Temperature 98.2 F Pulse Rate 79 Respiratory Rate 22 Blood Pressure 128/85 Pulse Oximetry 94 L Intake & Output 03/25/18 03/26/18 03/26/18 18:59 06:59 18:59 Intake Total 2059 Output Total 300 / 300 Balance 1760 / 1760 Intake: IV 1999 NS Inj 1,000 ML @ Wide Open IV. 1999 SIG BOLUS NAKITA Rx#:[id number] Oral 60 / 60 Output: Urine 300 / 300 Other: # Voids 1 Date of Last Bowel Movement 03/25/18 Narrative: GENERAL: Well-nourished, well-developed pleasant middle-age male patient in [facility]. SKIN: Warm and dry. No rash. HEENT: Normocephalic. Atraumatic. Pupils equal and round. Mucous membranes pink and moist. Bilateral eyes with mild injection and scant yellow purulent drainage and dry crust on eyelashes. Few white plaques on the superior hard palate and tongue, consistent with thrush. NECK: Supple. Trachea midline. CARDIOVASCULAR: Regular rate and rhythm. No murmur appreciated. RESPIRATORY: No accessory muscle use. Clear to auscultation. Breath sounds equal bilaterally. GASTROINTESTINAL: Abdomen soft, non-tender, nondistended. Normoactive bowel sounds x4. MUSCULOSKELETAL: No obvious deformities. Extremities without clubbing, cyanosis , or edema. NEUROLOGICAL: Awake and alert. No obvious cranial nerve deficits. Motor grossly within normal limits. Moving all extremities spontaneously. Normal speech. PSYCHIATRIC: Appropriate mood and affect; insight and judgment normal. Results - Labs CBC & Chem 7: 03/26/18 11:43 03/26/18 08:16 Laboratory Results - last 24 hr 03/25/18 03/25/18 03/25/18 18:04 18:04 18:04 WBC 4.6 RBC 3.64 L Hgb 11.5 L Hct 33.6 L MCV 92.4 MCH 31.5 MCHC 34.1 RDW 13.9 Plt Count 135 L MPV 8.4 Prelim Diff (Auto) Slide review pending Neut % (Auto) 38.0 Lymph % (Auto) 53.6 H [place] % (Auto) 6.7 Eos % (Auto) 0.9 Baso % (Auto) 0.8 Neut # (Auto) 1.7 L Lymph # (Auto) 2.5 [place] # (Auto) 0.3 Eos # (Auto) 0.0 Baso # (Auto) 0.0 WBC Differential . Diff Scan Auto diff confirmed Differential Comment . Platelet Estimate Low L Platelet Morphology Enlarged H RBC Morphology Normal Sodium 126 L Potassium 4.4 Chloride 96 L Carbon Dioxide 21.2 Anion Gap 9 BUN 17 Creatinine 0.99 Estimated GFR 77 L POC Glucose Random Glucose 69 L Calcium 7.7 L Magnesium Total Creatine Kinase CK-MB (CK-2) Troponin I TSH 1.540 Serum Alcohol 202 H 03/25/18 03/25/18 03/26/18 18:04 22:33 08:16 WBC RBC Hgb Hct MCV MCH MCHC RDW Plt Count MPV Prelim Diff (Auto) Neut % (Auto) Lymph % (Auto) [place] % (Auto) Eos % (Auto) Baso % (Auto) Neut # (Auto) Lymph # (Auto) [place] # (Auto) Eos # (Auto) Baso # (Auto) WBC Differential Diff Scan Differential Comment Platelet Estimate Platelet Morphology RBC Morphology Sodium 139 D Potassium 3.8 Chloride 109 H D Carbon Dioxide 20.0 L Anion Gap 10 BUN 12 Creatinine 0.75 Estimated GFR Greater than 89 POC Glucose 70 Random Glucose 62 L Calcium 7.2 L* Magnesium 2.0 Total Creatine Kinase 182 CK-MB (CK-2) 2.2 Troponin I Less than 0.02 L TSH Serum Alcohol - Imaging Impressions Head CT 03/25/18 17:17 CONCLUSION: 1. No bleed or other acute intracranial abnormality. 2. Chronic maxillary sinus disease, not significantly changed on the right, improved on the left. . Assessment and Plan - Plan 62-year-old male with a past medical history significant for HIV (last CD4 count 249 in 2013), not on antiretroviral medications by choice, presents to the emergency department after suffering a fall from a barstool fall drinking at a bar. He was brought to the emergency department by EMS because the employees at the bar felt the patient was "too slow in standing up." Fall/weakness secondary to alcohol intoxication: Patient denies any loss of consciousness, trauma or pain secondary to his fall. Reported some lightheadedness upon admission, suspect multifactorial with hyponatremia/EtOH intoxication. -Alcohol level 202 -Given IV fluid hydration with NS -Symptoms much improved, patient ambulating without difficulty, stable for discharge Alcohol abuse: Acute on chronic -Monitor for withdrawal -CIWA protocol -stable Hyponatremia: Acute, Sodium 126 -Status post normal saline in the ED -Fluid restriction -Repeat BMP shows much improvement, sodium 139, resolved Oral candidiasis: Acute -Continue Nystatin swishswallow, given prescription at discharge -Patient tolerating oral intake HIV: Chronic -Patient is not on any antiretroviral medications and does not follow with infectious disease -Patient states he stopped medications 7-10 years ago because he was taking over 10 pills daily -He is now interested in restarting medications, and is familiar with [facility], recommended to follow-up as soon as possible Hypocalcemia: Mild -Give calcium carbonate replacement Bilateral conjunctivitis: acute -Give ciprofloxacin ophthalmic drops 4 times daily x7 days DVT prophylaxis: Heparin Discharge Planning: Discharge patient to home Condition on discharge: Stable Regular Diet as tolerated Ad Caroline activity Rx written: Calcium carbonate 500 mg po bid, ciprofloxacin 0.3% ophthalmic drops qid x7days, nystatin 5 mL's SS qid [id number], thiamine 100 mg daily Follow-up with primary care physician and infectious disease at [facility]
[2018-03-26] MEDS ORDERED: Ciprofloxacin 0.3% Opth Drops 2.5 ML Bottle EACH EYE SCH (10:27)
--- NOTE | 2018-03-26 12:02 | ECG ---
Date Performed: 03/25/2018 Time Performed: 19:26:22 PTAGE: 62 years EKG: Sinus rhythm RIGHT BUNDLE BRANCH BLOCK ABNORMAL ECG PREVIOUS TRACING : 03/09/2018 15.31 Since the previous tracing, no significant change noted DOCTOR: Forrest Hendricks Interpretating Date/Time 03/26/2018 12:00:58
[2018-03-26 12:20] LABS: Baso % (Auto) 1.2 % (0.0-2.0); Hematocrit 35.3 % (39.0-51.0); Hemoglobin 11.8 gm/dL (13.0-17.0); Lymph # (Auto) 1.7 th/mm3 (1.0-4.8); Lymph % (Auto) 41.4 % (9.0-44.0); Mean Corpuscular HGB Conc 33.4 % (32.0-36.0); Mean Corpuscular Volume 92.9 fL (80.0-100.0); Mean Platelet Volume 8.2 fL (7.0-11.0); Mono # (Auto) 0.3 th/mm3 (0.0-0.9); Mono % (Auto) 6.6 % (0.0-8.0); Neut % (Auto) 49.8 % (16.0-70.0); Platelet Count 135 th/mm3 (150-450)
== END 2018-03-26 12:17 | disposition home or self-care (01) ==
LOC: NEPD 15:56 → NEDA 15:56 → NEPHCDU 22:06
PROVIDERS: ADMIT Internal Medicine; ATTEND Internal Medicine